=== PATIENT | female | born 1970 | race Caucasian/White ===

== ENCOUNTER 2019-01-07 17:52 | Observation (INO) | payer OTHER, SELFPAY ==
[2018-09-24 09:07] VITALS: BMI 39.1
[2019-01-07] VITALS (7 sets, daily range): BP systolic 135–153; BP diastolic 69–111; PULSE 72–88; RESP 11–20; TEMP 36.6–36.8; O2SAT 94–97; BMI 38.4; BMI 38.6
--- NOTE | 2019-01-07 18:31 | CT_ITS ---
HISTORY: Chest pain COMPARISON: Chest x-ray 03/19/2014 TECHNIQUE: Helical CT axial images of the thorax with 100 ml of Isovue 370 intravenous contrast. Multiplanar reconstruction. 3-D image processing was also performed. A radiation dose optimization technique was used for this scan. # of images incl. paperwork: [id number] FINDINGS: VASCULAR: No filling defects are seen within the pulmonary arteries. Normal contrast opacification of the pulmonary arteries. Thoracic aorta is normal in caliber without aneurysm. No aortic dissection. The pulmonary vasculature demonstrates no significant dilatation. LUNGS: Right middle lobe 3 mm calcified granuloma. Otherwise, clear lung parenchyma. No pulmonary masses or suspicious nodules. MEDIASTINUM: No abnormally enlarged mediastinal or hilar nodes. PLEURA: No pleural effusion. No pneumothorax. CARDIAC: Normal heart size. No pericardial effusion. CHEST WALL: Chest wall is intact. No abnormal axillary lymphadenopathy. BONES: No suspicious osseous lytic or blastic lesions seen. UPPER ABDOMEN: The visualized upper abdomen demonstrates no acute abnormality. CT/CTA Chest W/WO Contrast IMPRESSION: 1. No acute pulmonary embolus. 2. A 3 mm right middle lobe calcified granuloma. Otherwise, negative CT examination of chest. Individualized dose optimization techniques were used for this CT. at 1949 Reported and signed by: Claudio Fenton MD Electronically Signed: Claudio Fenton MD at 19:48 EDT Tel , Service support ,
--- NOTE | 2019-01-07 18:32 | EKG12_ITS ---
Test Reason : CP Blood Pressure : / mmHG Vent. Rate : 089 BPM Atrial Rate : 089 BPM P-R Int : 178 ms QRS Dur : 076 ms QT Int : 358 ms P-R-T Axes : 031 033 050 degrees QTc Int : 435 ms Normal sinus rhythm Normal ECG Confirmed by VARGAS QUINTANILLA, ANGEL ([id number]), medical transcription editor AUREA MIRANDA ([id number]) on 01/10/2019 1:16:16 PM Referred By: Confirmed By:ANGEL KAYE MD
[2019-01-07 18:53] LABS: Absolute Lymphocyte Count 1.44 X10^3/ul (0.83-4.51); Absolute Neutrophil Count 6.7 X10^3/uL (2.0-7.7); Basophil# 0.03 X10^3/uL; Basophil% 0.3 % (0-1); Eosinophil# 0.18 X10^3/uL; Hematocrit 39.8 % (37-47); Hemoglobin 12.9 g/dl (12.0-15.0); Lymphocyte # 1.44 X10^3/ul (4.0); Mean Corp Hgb Conc 32.4 g/gl (32-36); Mean Corpuscular Hgb 29.3 pg (27.0-32.0); Mean Corpuscular Volume 90.2 fL (81-99); Monocyte# 0.61 X10^3/uL; Monocyte% 6.8 % (0-10); Neutrophil % 74.6 % (47-70); POSITIVE COUNT NO; POSITIVE DIFFERENTIAL NO; POSITIVE MORPHOLOGY NO; Platelet Count 315 K/mm3 (150-450); RBC Distribution Width CV 13.9 % (11.6-14.6); RBC Distribution Width SD 45.7 fl (35.1-43.9); Red Blood Count 4.41 M/mm3 (4.2-5.4)
[2019-01-07] MEDS: Morphine 4 MG/ML Syringe IV ×2 (18:59→20:20)
[2019-01-07] MEDS: Aspirin 81 MG TAB.CHEW 324 MG PO (18:59)
[2019-01-07 19:04] LABS: Anion Gap 4 (5-15); BUN 22 mg/dL (7-18); BUN/Creat Ratio 25.1 RATIO (10-20); Calcium,Total 8.6 mg/dL (8.5-10.1); Chloride 104 mmol/L (98-107); Creatinine, Serum 0.88 mg/dL (0.55-1.02); EST Glomerular Filtration Rate 73 mL/min (>60); Est Glom Filt Rate - Afr Amer 88 mL/min (>60); Estimated Creatinine Clearance 66.78 ml/min; Glucose 118 mg/dL (74-106); Potassium 3.8 mmol/L (3.5-5.1); Sodium Level 135 mmol/L (136-145)
--- NOTE | 2019-01-07 20:11 | ED.RN ---
DR. MOSQUEDA MADE AWARE THAT PATIENT IS STILL C/O CHEST PAIN LEVEL 8/10. VERBAL ORDER FOR MORPHINE 4MG IV ORDERED.
--- NOTE | 2019-01-07 20:42 | HP.PCM_ITS ---
Problem List (1) Chest pain at rest Status: Acute History of Present Illness Date of Admission: 01/07/19 Chief Complaint: chest pain The patient is a 49 year old F with a significant history of DVT; hyperlipidemia; depression and anxiety; tobacco abuse; and ADHD who presented to the emergency department with 1 day history of excruciating episodic chest pain that started while watching fireworks on January 06, 2019. Her chest pain is substernal and it radiates to her back into her left arm. She felt numbness at the left arm. Her chest pain woke up from her sleep multiple times. She describes a chest pain as squeezing type of pain. She denies any ameliorating or aggravating factors. She has some cough that aggravates her throat more than her chest. Nonetheless her cough somewhat aggravates her chest pain. EKG showed sinus rhythm and troponin was unremarkable. CTPA was remarkable except for granuloma. Patient received morphine in the emergency department. The morphine actually did not help with her chest pain but it made her sleepy. Reportedly she had a stress test about 3 years ago and it was unremarkable. Past Medical History Past Medical History (Chronic Problems): Chronic Problems (Last Reviewed 01/07/19 @ 21:12 by Kristian Chase MD) History of hypothyroidism (Chronic) ADHD (attention deficit hyperactivity disorder) (Chronic) Medical History: Medical History (Last Reviewed 01/08/19 @ 06:37 by Kristian Chase MD) History of anxiety Z86.59 Thyroid disorder E07.9 Allergies cortisone [Cortisone] Allergy (Verified 08/01/18 12:22) Unknown spironolactone [From Aldactone] Allergy (Verified 08/01/18 12:22) Unknown Home Medications: Ambulatory Orders Medication Instructions Recorded Levothyroxine Sodium [Synthroid] 150 mcg PO DAILY 01/07/19 Paroxetine HCl 40 mg PO DAILY 01/07/19 Surgical History: Surgical History (Last Reviewed 01/08/19 @ 06:37 by Kristian Chase MD) History of tonsillectomy Z98.890, Z90.89 History of tonsillectomy Z90.89 S/P ACL surgery Z98.890 Surgical History: arthroscopy, knee APPRENTICE JOCKEY History: No pertinent APPRENTICE JOCKEY history Lives: With Family Smoking Status: Current every day smoker Tobacco Use: Cigarettes Alcohol: Occasional - *Family History Maternal History Items: Cancer Paternal History Items: Cancer Review of Systems Constitutional: Denies: Chills, Fever, Weight Change HEENT: Denies: Head Aches, Sinus Congestion, Sinus Drainage Cardiovascular: Reports: Chest Pain. Denies: Palpitations Respiratory: Reports: Cough, Shortness of Breath. Denies: Shortness of breath at rest, Sputum production Gastrointestinal: Denies: Abdominal Pain, Nausea, Vomiting Genitourinary: Denies: Dysuria Musculoskeletal: Denies: Joint Pain, Joint Tenderness Skin: Denies: Rash, Wounds Neurological: Denies: Numbness, Tingling, Focal weakness Psychiatric: Denies: Anxiety, Depression, Homicidal Ideations, Suicidal Ideations Hematologic/ Lymphatic: Denies: Easy Bruising, Easy Bleeding VTE Information - Inpt Only VTE Present on Admission: No VTE Mechan Device Prophylaxis: None VTE Pharm Prophylaxis ordered?: Yes Patient Problems: Active and Suspected Problems (Last Reviewed 01/07/19 @ 21:12 by Kristian Chase MD) Chest pain at rest (Acute) - Physical Exam General: Alert, Oriented x3, Cooperative HEENT: Atraumatic, PERRLA, EOMI, Normocephalic Neck: Supple, No JVD, Negative Carotid Bruits Lungs: Clear to auscultation, Normal air movement Cardiovascular: Regular rate, No murmurs Abdomen: Bowel Sounds Present, Soft, Non Tender Extremities: No edema, Capillary Refill Less than 3 Seconds Skin: No rashes, No breakdown Musculoskeletal: No Tenderness to Palpation of Joints or Extremities Neurological: Cranial nerves II-XII grossly intact Psych/Mental Status: Normal Affect, Appropriate Vital Signs Temp Pulse Resp BP Pulse Ox 98.3 F 80 11 L 153/83 H 95 01/07/19 17:54 01/07/19 20:03 01/07/19 20:03 01/07/19 20:03 01/07/19 20:03 Oxygen Delivery Method Room Air Weight: 101.605 kg Body Mass Index (BMI) 38.4 Finger Stick Blood Glucose 84 Laboratory Tests Past 24 Hrs 01/07/19 01/07/19 18:05 18:05 WBC 9.0 RBC 4.41 Hgb 12.9 Hct 39.8 MCV 90.2 MCH 29.3 MCHC 32.4 RDW 13.9 RDW Differential 45.7 H Plt Count 315 MPV 10.0 Immature Gran % (Auto) 0.300 Neut % (Auto) 74.6 H Lymph % (Auto) 16.0 L [place] % (Auto) 6.8 Eos % (Auto) 2.0 Baso % (Auto) 0.3 Absolute Neuts (auto) 6.7 Absolute Lymphs (auto) 1.44 Total Counted Not Reportable Sodium 135 L Potassium 3.8 Chloride 104 Carbon Dioxide 27.0 Anion Gap 4 L BUN 22 H Creatinine 0.88 Estim Creat Clear Calc 66.78 Est GFR (MDRD) Af Amer 88 Est GFR (MDRD) Non-Af 73 BUN/Creatinine Ratio 25.1 H Glucose 118 H Calcium 8.6 Troponin I < 0.015 Assessment/Plan All Active Problems (Last Reviewed 01/07/19 @ 21:12 by Kristian Chase MD) Chest pain at rest (Acute) The patient is a 49 year old F with a significant history of DVT; hyperlipidemia; depression and anxiety; tobacco abuse; and ADHD who presented to the emergency department with 1 day history of excruciating episodic chest pain that started while watching fireworks on January 06, 2019. Chest pain Admit to a monitored bed on PCU. CTPA showed no acute pulmonary embolus. It showed a 3 mm right middle lobe calcified granuloma. CTPA independently reviewed confirms no acute cardiopulmonary process. EKG independently reviewed confirms sinus rhythm Received aspirin 324 mg in emergency department ASA 81 mg p.o. daily SL NTG 0.4 mg prn as needed for chest pain Morphine as needed for pain We will check lipid panel. Statin: Start patient on high intensity statin Serial cardiac enzymes Stat EKG as needed for chest pain Treadmill stress test in the AM if the cardiac enzymes are negative Hypothyroidism Synthroid continued Depressions/anxiety Paxil continued Tobacco abuse Patient smokes 1 pack for about a week. Counseled. Declined nicotine patch. DVT prophylaxis Subcutaneous Lovenox ordered. Code Visit OBSV E&M: 76430 Initial observation care L3
--- NOTE | 2019-01-07 20:44 | ED.DCSUM_ITS ---
- ER Visit Summary Date of Service: 01/07/19 Chief Complaint: Back and chest pain History of Present Illness: The patient is a 49 F with chest pain that started yesterday evening. It is substernal and radiates straight through to the back. It feels like a squeezing pain. Associated with shortness of breath and bilateral arm pain. Patient has a history of DVT. She does not take blood thinners. History of smoking. Physical Examination: Afebrile and vital signs unremarkable. Patient alert and oriented. No acute distress. Heart regular rate and rhythm. Lungs clear. Skin appears normal. Extremities nontender with no edema. Pulses strong and equal. Test Results: EKG shows sinus rhythm rate of 89. No sign of acute ischemia or infarction pattern. CBC, BMP, troponin unremarkable. CTA chest showed no evidence of PE. She does have a 3 mm right middle lobe granuloma. Emergency Department Course and Treatment: Patient treated with aspirin and morphine. She was placed on a monitor. EKG was unremarkable. Chest pain work- up including a CTA chest was unremarkable. Patient had continued pain and required additional morphine. She is low risk overall, but with the continued pain I did contact the hospitalist to monitor overnight. Treatment Plan: As above Disposition: Observe at PCU Impression: 1. Chest pain This note was generated with [employer] dictation software. It may contain incorrect words, spelling, and punctuation that were not noted in review of the chart prior to signing ED Disposition - Plan for ED Patient: Referrals: Lalitha Olea MD [Primary Care Provider] -
--- NOTE | 2019-01-07 21:35 | EKG12_ITS ---
Test Reason : CP ADMIT Blood Pressure : / mmHG Vent. Rate : 065 BPM Atrial Rate : 065 BPM P-R Int : 194 ms QRS Dur : 082 ms QT Int : 410 ms P-R-T Axes : 030 021 031 degrees QTc Int : 426 ms Normal sinus rhythm Normal ECG Confirmed by VARGAS QUINTANILLA, ANGEL ([id number]), editor book MICHELLE LOGAN ([id number] on 01/13/2019 1:17:25 PM Referred By: DR HYATT Confirmed By:ANGEL KAYE MD
[2019-01-07] MEDS: Morphine 2 MG/ML Syringe IV (22:02)
[2019-01-07] MEDS: 0.9% NaCl Peripheral Flush Adult/Peds IV (22:02)
[2019-01-07] MEDS: Atorvastatin Calcium 80 MG Tablet PO (23:14)
[2019-01-08] MEDS: Morphine 2 MG/ML Syringe IV ×3 (01:36→10:47)
[2019-01-08] MEDS: 0.9% NaCl Peripheral Flush Adult/Peds IV ×3 (01:37→10:48)
[2019-01-08 03:00] VITALS: PULSE 74
[2019-01-08 03:25] VITALS: BP 124/76; PULSE 76; RESP 18; TEMP 36.6; O2SAT 96
[2019-01-08 04:27] LABS: Absolute Lymphocyte Count 1.02 X10^3/ul (0.83-4.51); Absolute Neutrophil Count 3.5 X10^3/uL (2.0-7.7); Basophil# 0.03 X10^3/uL; Basophil% 0.6 % (0-1); Eosinophil# 0.12 X10^3/uL; Eosinophils% 2.2 % (0-5); Hematocrit 40.2 % (37-47); Hemoglobin 12.9 g/dl (12.0-15.0); Lymphocyte # 1.02 X10^3/ul (4.0); Lymphocyte % 18.9 % (19-41); Mean Corp Hgb Conc 32.1 g/gl (32-36); Mean Corpuscular Hgb 28.7 pg (27.0-32.0); Mean Corpuscular Volume 89.5 fL (81-99); Monocyte# 0.67 X10^3/uL; Monocyte% 12.4 % (0-10); Neutrophil # 3.52 X10^3/uL (2.7-7.7); Neutrophil % 65.3 % (47-70); Platelet Count 321 K/mm3 (150-450); Red Blood Count 4.49 M/mm3 (4.2-5.4); White Blood Count 5.4 K/mm3 (4.4-11.0)
[2019-01-08 04:28] LABS: POSITIVE COUNT NO; POSITIVE DIFFERENTIAL NO; POSITIVE MORPHOLOGY NO
[2019-01-08 04:34] LABS: Prothrombin Time (Protime)PT. 12.9 SECONDS (11.7-14.9)
[2019-01-08 04:35] LABS: Partial Thromboplast Time 25.2 Seconds (24.1-36.2)
[2019-01-08 04:44] LABS: Anion Gap 5 (5-15); BUN 18 mg/dL (7-18); Calcium,Total 8.6 mg/dL (8.5-10.1); Chloride 105 mmol/L (98-107); Cholesterol 211 mg/dL (200); Creatinine, Serum 0.82 mg/dL (0.55-1.02); EST Glomerular Filtration Rate 79 mL/min (>60); Est Glom Filt Rate - Afr Amer 95 mL/min (>60); Estimated Creatinine Clearance 71.66 ml/min; Glucose 105 mg/dL (74-106); High Density Lipoprotein 53 mg/dL; Potassium 4.5 mmol/L (3.5-5.1); Sodium Level 139 mmol/L (136-145); Triglycerides 138 mg/dL; Very Low Density Lipoprotein 28 mg/dL (5-40)
[2019-01-08] MEDS: Levothyroxine 150 MCG Tablet PO (05:06)
[2019-01-08] MEDS: Aspirin E.C. 81 MG Tablet PO (05:06)
[2019-01-08 05:15] VITALS: BP 104/62; PULSE 77; RESP 18; TEMP 36.4; O2SAT 97
--- NOTE | 2019-01-08 05:55 | EKG12_ITS ---
Test Reason : AM EKG Blood Pressure : / mmHG Vent. Rate : 073 BPM Atrial Rate : 073 BPM P-R Int : 184 ms QRS Dur : 080 ms QT Int : 396 ms P-R-T Axes : 028 019 026 degrees QTc Int : 436 ms Normal sinus rhythm Normal ECG Confirmed by VARGAS QUINTANILLA, ANGEL ([id number]), loan expeditor MICHELLE LOGAN ([id number]) on 01/13/2019 1:14:54 PM Referred By: JUANITA Confirmed By:ANGEL KAYE MD
[2019-01-08 07:00] VITALS: PULSE 80
--- NOTE | 2019-01-08 07:17 | PN_ITS ---
Patient Problems: Active and Suspected Problems (Last Reviewed 01/08/19 @ 06:37 by Kristian Chase MD) Chest pain at rest (Acute) Subjective: The patient is a 49-year-old female with a past medical history of DVT, hyperlipidemia, depression/anxiety, tobacco dependence, ADHD and obesity who presented to the [facility] emergency department on 01/07/2019 complaining of severe substernal chest pain radiating into her back and down the left arm. It frequently awakens her from sleep. The EKG in the ED showed normal sinus rhythm, incomplete right bundle branch block and no suspicious ST or T wave changes. Subsequent EKGs were unchanged. Vital signs at presentation to the emergency department were temperature 98.3, pulse rate 88, blood pressure 147/74, respiratory rate 18 and she was 95 to 97% saturated on room air. CBC was unremarkable. BMP showed a sodium of 135 and a BUN of 22 with a creatinine of 0.88. Troponin was less than 0.015. CTA of the chest was negative for pulmonary embolus. There is a 3 mm right middle lobe calcified granuloma and the remainder of the CT was unremarkable. She was admitted to a monitored bed on the progressive care unit and serial cardiac enzymes were ordered. All cardiac enzymes were within normal limits and she is scheduled for a nuclear stress test today. Repeat lab today shows a normal CBC, unremarkable BMP. LDL is 130 and the HDL is 53. - Physical Exam Vital Signs Temp Pulse Resp BP Pulse Ox 97.6 F L 77 18 104/62 97 01/08/19 05:15 01/08/19 05:15 01/08/19 05:15 01/08/19 05:15 01/08/19 05:15 Oxygen Flow Rate (L/min) 2 Oxygen Delivery Method Room Air Weight: 225 lb 1.471 oz Body Mass Index (BMI) 38.6 Finger Stick Blood Glucose 84 Intake and Output for Last 24 Hours 01/06/19 01/07/19 01/08/19 23:59 23:59 23:59 Intake Total 300 / 300 Balance 300 / 300 Laboratory Tests Past 24 Hrs 01/07/19 01/07/19 01/07/19 18:05 18:05 22:05 WBC 9.0 RBC 4.41 Hgb 12.9 Hct 39.8 MCV 90.2 MCH 29.3 MCHC 32.4 RDW 13.9 RDW Differential 45.7 H Plt Count 315 MPV 10.0 Immature Gran % (Auto) 0.300 Neut % (Auto) 74.6 H Lymph % (Auto) 16.0 L [place] % (Auto) 6.8 Eos % (Auto) 2.0 Baso % (Auto) 0.3 Absolute Neuts (auto) 6.7 Absolute Lymphs (auto) 1.44 Total Counted Not Reportable PT INR APTT Sodium 135 L Potassium 3.8 Chloride 104 Carbon Dioxide 27.0 Anion Gap 4 L BUN 22 H Creatinine 0.88 Estim Creat Clear Calc 66.78 Est GFR (MDRD) Af Amer 88 Est GFR (MDRD) Non-Af 73 BUN/Creatinine Ratio 25.1 H Glucose 118 H Calcium 8.6 Troponin I < 0.015 < 0.015 Triglycerides Cholesterol LDL Cholesterol VLDL Cholesterol HDL Cholesterol 01/08/19 01/08/19 01/08/19 01:07 04:00 04:00 WBC RBC Hgb Hct MCV MCH MCHC RDW RDW Differential Plt Count MPV Immature Gran % (Auto) Neut % (Auto) Lymph % (Auto) [place] % (Auto) Eos % (Auto) Baso % (Auto) Absolute Neuts (auto) Absolute Lymphs (auto) Total Counted PT INR APTT Sodium 139 Potassium 4.5 Chloride 105 Carbon Dioxide 29.0 Anion Gap 5 BUN 18 Creatinine 0.82 Estim Creat Clear Calc 71.66 Est GFR (MDRD) Af Amer 95 Est GFR (MDRD) Non-Af 79 BUN/Creatinine Ratio 22.0 H Glucose 105 Calcium 8.6 Troponin I < 0.015 < 0.015 Triglycerides 138 Cholesterol 211 H LDL Cholesterol 130 VLDL Cholesterol 28 HDL Cholesterol 53 01/08/19 01/08/19 04:00 04:00 WBC 5.4 RBC 4.49 Hgb 12.9 Hct 40.2 MCV 89.5 MCH 28.7 MCHC 32.1 RDW 14.0 RDW Differential 45.0 H Plt Count 321 MPV 10.0 Immature Gran % (Auto) 0.600 Neut % (Auto) 65.3 Lymph % (Auto) 18.9 L [place] % (Auto) 12.4 H Eos % (Auto) 2.2 Baso % (Auto) 0.6 Absolute Neuts (auto) 3.5 Absolute Lymphs (auto) 1.02 Total Counted Not Reportable PT 12.9 INR 1.0 APTT 25.2 Sodium Potassium Chloride Carbon Dioxide Anion Gap BUN Creatinine Estim Creat Clear Calc Est GFR (MDRD) Af Amer Est GFR (MDRD) Non-Af BUN/Creatinine Ratio Glucose Calcium Troponin I Triglycerides Cholesterol LDL Cholesterol VLDL Cholesterol HDL Cholesterol Medical Necessity - Tobacco Use Smoking Status: Current every day smoker Tobacco Use: Cigarettes Assessment/Plan All Active Problems (Last Reviewed 01/08/19 @ 06:37 by Kristian Chase MD) Chest pain at rest (Acute)
[2019-01-08 07:33] VITALS: O2SAT 98
[2019-01-08] MEDS: Paroxetine 20 MG Tablet 40 MG PO (10:49)
[2019-01-08 11:07] VITALS: BP 129/66; PULSE 81; RESP 14; TEMP 36.9; O2SAT 95
--- NOTE | 2019-01-08 12:00 | STRESSREP ---
Stress Test Report Date: 01-08-19 Procedure: Exercise tolerance test/imaging study Indications: Chest pain Consent: Per the patient Procedure: The patient exercised on a Everardo protocol for 7 minutes completing Stage I and 1 minute of Stage II achieving a peak heart rate of 160 bpm (93 % predicted maximal heart rate) with a peak blood pressure 180/58 mmHg and a peak MET capacity of 8 METs. The baseline ECG demonstrated normal sinus rhythm. The peak exercise ECG demonstrated somatic/motion artifact with no obvious ECG changes. There were no cardiac dysrhythmias pretest, during exercise, or recovery. The functional capacity was considered average. There was no complaint of chest discomfort during exercise or recovery. The examination was discontinued secondary to leg discomfort. Impression: 1. Technically adequate (percent predicted maximal heart rate greater than 85%) exercise tolerance test 2. Peak exercise ECG with somatic/motion artifact with no obvious ECG changes 3. There were no cardiac dysrhythmias pretest, during exercise, or recovery 4. Nuclear images pending Myocardial perfusion imaging study: Technique: The patient was injected with 14.1 mCi of technetium 99m Cardiolite and subsequently rest SPECT Cardiolite nuclear imaging was obtained in the horizontal long, vertical long, and short axis views. The patient exercised on a Everardo protocol for 7 minutes completing Stage I and 1 minute of Stage II achieving a peak heart rate of 160 bpm (93 % predicted maximal heart rate) with a peak blood pressure 180/58 mmHg and a peak MET capacity of 8 METs. The patient was injected with 43.0 mCi of technetium 99m Cardiolite and subsequently stress SPECT Cardiolite nuclear imaging was obtained in the horizontal long, vertical long, and short axis views. A gated Cardiolite study at peak stress was obtained. Interpretation: Rest and stress SPECT Cardiolite nuclear imaging status post realignment, normalization, and attenuation correction, demonstrates appearance at rest of areas of subtle diminished tracer uptake near the distal anterior/anteroseptal segments which appears to improve/normalize following stress. Following stress there appears to be relative uniform tracer uptake and myocardial perfusion appearing within normal limits. There is end systolic thickening and brightening. The gated Cardiolite study demonstrates myocardial thickening and inward wall motion. The reported LVEF is 73 %. Impression: 1. Rest and stress SPECT Cardiolite nuclear imaging demonstrate myocardial perfusion changes at rest which appear to improve status post stress appearing compatible shifting soft tissue attenuation/artifact with no myocardial perfusion changes considered diagnostic for associated stress-induced myocardial ischemia. 2. The gated Cardiolite study reports an LVEF of 73 %. This note was generated with [employer] software. It may contain incorrect words, spelling, and punctuation that were not noted in checking the note before signing.
--- NOTE | 2019-01-08 12:54 | DCINST_ITS ---
- Discharge Diagnoses Current Active Problems: Current Active and Chronic Problems (Last Reviewed 01/08/19 @ 06:37 by Kristian Chase MD) Chest pain at rest (Acute) You will use the following diet at home:: Cardiac - low fat, Other - avoid caffeine, chocolate, peppermint and TUMS.......these things all increase reflux and heartburn. Do not lie down for at least 1 hour after eating. Your food should be the consistency of: Regular Your liquids should be the consistency of: Regular/Thin Discharge Activity: Return to Normal Activity Return to work on:: 01/10/19 May resume sexual activity in: No Restrictions Call your doctor if you observe: Fever of 101 or Higher, Shortness of breath, Dizziness, Fainting spells, Swelling in the ankles, Chest pain - persistent ch est pain with no improvement with changes in diet and Protonix, Prolonged hiccoughing Instructions: What Is GERD?, Lifestyle Changes for Controlling GERD, Medications for GERD, Your Body's Response to Anxiety, Treating Anxiety Disorders with Therapy Additional Instructions: There are many things that cause chest pain. We have ruled out 2 of the terrible things that can kill you and these are a blood clot to the lung and heart disease. There has been no problem with the rhythm of your heart while being monitored in the hospital. You have had heart burn and this can cause chest pain.....it can also cause esophageal spasms and this feels different than heartburn. I have given you a prescription for Protonix which is a medication that decreases the acid in the stomach and prevents heartburn. I have given you some literature to read on GERD and treament of GERD. Anxiety also causes chest tightness, shortness of breath, racing heart, etc. Asthma can do the same. Try the protonix and if the chest pains continue discuss this with your PCP and more testing will be needed to look for other causes of chest pain. Pending Tests on Discharge: none Allergies/Adverse Reactions: Allergies cortisone [Cortisone] Allergy (Verified 08/01/18 12:22) Unknown spironolactone [From Aldactone] Allergy (Verified 08/01/18 12:22) Unknown Medications to take at Discharge Levothyroxine Sodium [Synthroid] 150 mcg PO DAILY 01/07/19 Paroxetine HCl 40 mg PO DAILY 01/07/19 Pantoprazole Sodium [Protonix] 20 mg PO BID #60 tab 01/08/19 The following prescriptions were given: Pantoprazole Sodium [Protonix] 20 mg PO BID #60 tab Prescription Printed Primary Care Physician: Lalitha Olea MD [Primary Care Provider] - Please follow up with your Primary Care Physician in: 1 week Test Results: Test results from this visit will be discussed in further detail at your follow- up appointment, if applicable. Proposed Discharge Date: 01/08/19
--- NOTE | 2019-01-08 13:25 | PCM.DC.SUM ---
Discharge Date and Diagnosis - Problem List Patient Problems: Active and Suspected Problems (Last Reviewed 01/08/19 @ 06:37 by Kristian Chase MD) Non-cardiac chest pain (Acute) Chest pain at rest (Acute) Date of Admission: 01/07/19 Date of Discharge: 01/08/19 - Primary Discharge Diagnosis Active and Suspected Problems (Last Reviewed 01/08/19 @ 06:37 by Kristian Chase MD) Non-cardiac chest pain (Acute) Chest pain at rest (Acute) musculoskeletal chest and back pain. - Secondary Discharge Diagnosis Chronic Problems (Last Reviewed 01/08/19 @ 06:37 by Kristian Chase MD) GERD (gastroesophageal reflux disease) (Chronic) Obesity (BMI 30-39.9) (Chronic) History of hypothyroidism (Chronic) ADHD (attention deficit hyperactivity disorder) (Chronic) Mixed anxiety/depression Tobacco dependence Hospital Course and Treatment Imaging Results: 01/08/19 05:55 Nuclear Stress Test - Treadmil [NM] AM (NON MEDS) Clinical Impression(s) from Imaging Studies Chest CTA 01/07/19 18:31 IMPRESSION: 1. No acute pulmonary embolus. 2. A 3 mm right middle lobe calcified granuloma. Otherwise, negative CT examination of chest. Individualized dose optimization techniques were used for this CT. at 1949 Reported and signed by: Claudio Fenton MD Electronically Signed: Claudio Fenton MD at 19:48 EDT Tel , Service support , Laboratory Tests 01/08/19 01/08/19 01/08/19 Range/Units 04:00 04:00 04:00 WBC 5.4 (4.4-11.0) K/mm3 RBC 4.49 (4.2-5.4) M/mm3 Hgb 12.9 (12.0-15.0) g/dl Hct 40.2 (37-47) % MCV 89.5 (81-99) fL MCH 28.7 (27.0-32.0) pg MCHC 32.1 (32-36) g/gl RDW 14.0 (11.6-14.6) % RDW Differential 45.0 H (35.1-43.9) fl Plt Count 321 (150-450) K/mm3 MPV 10.0 (6.2-12.0) fl Immature Gran % (Auto) 0.600 (0.0-0.9) % Neut % (Auto) 65.3 (47-70) % Lymph % (Auto) 18.9 L (19-41) % Early % (Auto) 12.4 H (0-10) % Eos % (Auto) 2.2 (0-5) % Baso % (Auto) 0.6 (0-1) % Absolute Neuts (auto) 3.5 (2.0-7.7) X10^3/uL Absolute Lymphs (auto) 1.02 (0.83-4.51) X10^3/ul Total Counted Not Reportable PT 12.9 (11.7-14.9) SECONDS INR 1.0 APTT 25.2 (24.1-36.2) Seconds Sodium (136-145) mmol/L Potassium (3.5-5.1) mmol/L Chloride (98-107) mmol/L Carbon Dioxide (21.0-32.0) mmol/L Anion Gap (5-15) BUN (7-18) mg/dL Creatinine (0.55-1.02) mg/dL Estim Creat Clear Calc ml/min Est GFR (MDRD) Af Amer (>60) mL/min Est GFR (MDRD) Non-Af (>60) mL/min BUN/Creatinine Ratio (10-20) RATIO Glucose (74-106) mg/dL Calcium (8.5-10.1) mg/dL Troponin I < 0.015 (<0.045) ng/mL Triglycerides ( - 199) mg/dL Cholesterol (200) mg/dL LDL Cholesterol (0-130) mg/dL VLDL Cholesterol (5-40) mg/dL HDL Cholesterol (40 - ) mg/dL 01/08/19 01/08/19 01/07/19 Range/Units 04:00 01:07 22:05 WBC (4.4-11.0) K/mm3 RBC (4.2-5.4) M/mm3 Hgb (12.0-15.0) g/dl Hct (37-47) % MCV (81-99) fL MCH (27.0-32.0) pg MCHC (32-36) g/gl RDW (11.6-14.6) % RDW Differential (35.1-43.9) fl Plt Count (150-450) K/mm3 MPV (6.2-12.0) fl Immature Gran % (Auto) (0.0-0.9) % Neut % (Auto) (47-70) % Lymph % (Auto) (19-41) % Early % (Auto) (0-10) % Eos % (Auto) (0-5) % Baso % (Auto) (0-1) % Absolute Neuts (auto) (2.0-7.7) X10^3/uL Absolute Lymphs (auto) (0.83-4.51) X10^3/ul Total Counted PT (11.7-14.9) SECONDS INR APTT (24.1-36.2) Seconds Sodium 139 (136-145) mmol/L Potassium 4.5 (3.5-5.1) mmol/L Chloride 105 (98-107) mmol/L Carbon Dioxide 29.0 (21.0-32.0) mmol/L Anion Gap 5 (5-15) BUN 18 (7-18) mg/dL Creatinine 0.82 (0.55-1.02) mg/dL Estim Creat Clear Calc 71.66 ml/min Est GFR (MDRD) Af Amer 95 (>60) mL/min Est GFR (MDRD) Non-Af 79 (>60) mL/min BUN/Creatinine Ratio 22.0 H (10-20) RATIO Glucose 105 (74-106) mg/dL Calcium 8.6 (8.5-10.1) mg/dL Troponin I < 0.015 < 0.015 (<0.045) ng/mL Triglycerides 138 ( - 199) mg/dL Cholesterol 211 H (200) mg/dL LDL Cholesterol 130 (0-130) mg/dL VLDL Cholesterol 28 (5-40) mg/dL HDL Cholesterol 53 (40 - ) mg/dL 01/07/19 01/07/19 Range/Units 18:05 18:05 WBC 9.0 (4.4-11.0) K/mm3 RBC 4.41 (4.2-5.4) M/mm3 Hgb 12.9 (12.0-15.0) g/dl Hct 39.8 (37-47) % MCV 90.2 (81-99) fL MCH 29.3 (27.0-32.0) pg MCHC 32.4 (32-36) g/gl RDW 13.9 (11.6-14.6) % RDW Differential 45.7 H (35.1-43.9) fl Plt Count 315 (150-450) K/mm3 MPV 10.0 (6.2-12.0) fl Immature Gran % (Auto) 0.300 (0.0-0.9) % Neut % (Auto) 74.6 H (47-70) % Lymph % (Auto) 16.0 L (19-41) % Early % (Auto) 6.8 (0-10) % Eos % (Auto) 2.0 (0-5) % Baso % (Auto) 0.3 (0-1) % Absolute Neuts (auto) 6.7 (2.0-7.7) X10^3/uL Absolute Lymphs (auto) 1.44 (0.83-4.51) X10^3/ul Total Counted Not Reportable PT (11.7-14.9) SECONDS INR APTT (24.1-36.2) Seconds Sodium 135 L (136-145) mmol/L Potassium 3.8 (3.5-5.1) mmol/L Chloride 104 (98-107) mmol/L Carbon Dioxide 27.0 (21.0-32.0) mmol/L Anion Gap 4 L (5-15) BUN 22 H (7-18) mg/dL Creatinine 0.88 (0.55-1.02) mg/dL Estim Creat Clear Calc 66.78 ml/min Est GFR (MDRD) Af Amer 88 (>60) mL/min Est GFR (MDRD) Non-Af 73 (>60) mL/min BUN/Creatinine Ratio 25.1 H (10-20) RATIO Glucose 118 H (74-106) mg/dL Calcium 8.6 (8.5-10.1) mg/dL Troponin I < 0.015 (<0.045) ng/mL Triglycerides ( - 199) mg/dL Cholesterol (200) mg/dL LDL Cholesterol (0-130) mg/dL VLDL Cholesterol (5-40) mg/dL HDL Cholesterol (40 - ) mg/dL none Operations: None Procedures: Stress test - Impression: 1. Rest and stress SPECT Cardiolite nuclear imaging demonstrate myocardial perfusion changes at rest which appear to improve status post stress appearing compatible shifting soft tissue attenuation/artifact with no myocardial perfusion changes considered diagnostic for associated stress-induced myocardial ischemia. 2. The gated Cardiolite study reports an LVEF of 73 %. Summary of Care Provided: The patient is a 49-year-old female with a past medical history of DVT, hyperlipidemia, depression/anxiety, tobacco dependence, ADHD and obesity who presented to the [facility] emergency department on 01/07/2019 complaining of severe substernal chest pain radiating into her back and down the left arm with paresthesias in the hand. It had been constant for several hours. She told the night hospitalist that the pain wakens her up from sleep. The EKG in the ED showed normal sinus rhythm, incomplete right bundle branch block and no suspicious ST or T wave changes. Subsequent EKGs were unchanged. Vital signs at presentation to the emergency department were temperature 98.3, pulse rate 88, blood pressure 147/74, respiratory rate 18 and she was 95 to 97% saturated on room air. CBC was unremarkable. BMP showed a sodium of 135 and a BUN of 22 with a creatinine of 0.88. Troponin was less than 0.015. CTA of the chest was negative for pulmonary embolus. There is a 3 mm right middle lobe calcified granuloma and the remainder of the CT was unremarkable. She was admitted to a monitored bed on the progressive care unit and serial cardiac enzymes were ordered. All cardiac enzymes were within normal limits. she had a treadmill nuclear stress test on 01/08/19 and it was negative for ischemia. The gated nuclear ejection fraction was 73%. Telemetry showed normal sinus rhythm with no significant ectopy. Lipid panel showed a total cholesterol of 211 with an LDL of 130 and an HDL of 53. On PE she had pain with palpation of the left paravertebral muscles on the left side in the upper and mid thoracic areas. There was BL trapezius tightness, worse on the left. Negative Spurlings maneuver. she had decreased cervical rotation to the right. She was given 30 mg of Toradol prior to DC and 10 mg of Flexeril. She was advised to consider a massage and or visiting a chiropractor. She was given a prescription for Protonix 20 mg BID prior to discharge and if she has persistent chest pain despite treating the muscle spasms she will try the Protonix. She will follow up with Dr. Pagan in the next 1-2 weeks. I advised her to quit smoking, lose weight and start an exercise program. She was seen by the water treatment plant repairer in the hospital and she is interested in the [employer] program run by the water treatment plant repairer's. I told her she would need a referral from Dr. Olea. PHYSICAL EXAM: GENERAL: alert, oriented X 3, Cooperative, NAD ORAL: moist mucosa, no mucosal lesions NECK: No JVD, supple, trachea midline LUNGS: CTA, symmetric chest expansion HEART: RRR, Normal S1 and S2, no rub, no gallop ABDOMEN: soft, NT, ND, BS present, no guarding with palpation EXTREMITIES: no edema, no cyanosis, no calf tenderness SKIN: No rashes, no breakdown NEUROLOGIC: no focal neurologic deficits PSYCH: appropriate, normal affect, pleasant See above for the musculoskeletal exam. This note was generated with [employer] dictation software. It may contain incorrect words, spelling, and punctuation that were not noted in checking the note before signing. Patient Problems: Active and Suspected Problems (Last Reviewed 01/08/19 @ 06:37 by Kristian Chase MD) Non-cardiac chest pain (Acute) Chest pain at rest (Acute) - Physical Exam Vital Signs Temp Pulse Resp BP Pulse Ox 98.4 F 81 14 129/66 H 95 01/08/19 11:07 01/08/19 11:07 01/08/19 11:07 01/08/19 11:07 01/08/19 11:07 Oxygen Flow Rate (L/min) 3 Oxygen Delivery Method Room Air Weight: 225 lb 1.471 oz Body Mass Index (BMI) 38.6 Finger Stick Blood Glucose 84 Intake and Output for Last 24 Hours 01/06/19 01/07/19 01/08/19 23:59 23:59 23:59 Intake Total 300 / 300 Balance 300 / 300 Laboratory Tests Past 24 Hrs 01/07/19 01/07/19 01/07/19 18:05 18:05 22:05 WBC 9.0 RBC 4.41 Hgb 12.9 Hct 39.8 MCV 90.2 MCH 29.3 MCHC 32.4 RDW 13.9 RDW Differential 45.7 H Plt Count 315 MPV 10.0 Immature Gran % (Auto) 0.300 Neut % (Auto) 74.6 H Lymph % (Auto) 16.0 L Early % (Auto) 6.8 Eos % (Auto) 2.0 Baso % (Auto) 0.3 Absolute Neuts (auto) 6.7 Absolute Lymphs (auto) 1.44 Total Counted Not Reportable PT INR APTT Sodium 135 L Potassium 3.8 Chloride 104 Carbon Dioxide 27.0 Anion Gap 4 L BUN 22 H Creatinine 0.88 Estim Creat Clear Calc 66.78 Est GFR (MDRD) Af Amer 88 Est GFR (MDRD) Non-Af 73 BUN/Creatinine Ratio 25.1 H Glucose 118 H Calcium 8.6 Troponin I < 0.015 < 0.015 Triglycerides Cholesterol LDL Cholesterol VLDL Cholesterol HDL Cholesterol 01/08/19 01/08/19 01/08/19 01:07 04:00 04:00 WBC RBC Hgb Hct MCV MCH MCHC RDW RDW Differential Plt Count MPV Immature Gran % (Auto) Neut % (Auto) Lymph % (Auto) Early % (Auto) Eos % (Auto) Baso % (Auto) Absolute Neuts (auto) Absolute Lymphs (auto) Total Counted PT INR APTT Sodium 139 Potassium 4.5 Chloride 105 Carbon Dioxide 29.0 Anion Gap 5 BUN 18 Creatinine 0.82 Estim Creat Clear Calc 71.66 Est GFR (MDRD) Af Amer 95 Est GFR (MDRD) Non-Af 79 BUN/Creatinine Ratio 22.0 H Glucose 105 Calcium 8.6 Troponin I < 0.015 < 0.015 Triglycerides 138 Cholesterol 211 H LDL Cholesterol 130 VLDL Cholesterol 28 HDL Cholesterol 53 01/08/19 01/08/19 04:00 04:00 WBC 5.4 RBC 4.49 Hgb 12.9 Hct 40.2 MCV 89.5 MCH 28.7 MCHC 32.1 RDW 14.0 RDW Differential 45.0 H Plt Count 321 MPV 10.0 Immature Gran % (Auto) 0.600 Neut % (Auto) 65.3 Lymph % (Auto) 18.9 L Early % (Auto) 12.4 H Eos % (Auto) 2.2 Baso % (Auto) 0.6 Absolute Neuts (auto) 3.5 Absolute Lymphs (auto) 1.02 Total Counted Not Reportable PT 12.9 INR 1.0 APTT 25.2 Sodium Potassium Chloride Carbon Dioxide Anion Gap BUN Creatinine Estim Creat Clear Calc Est GFR (MDRD) Af Amer Est GFR (MDRD) Non-Af BUN/Creatinine Ratio Glucose Calcium Troponin I Triglycerides Cholesterol LDL Cholesterol VLDL Cholesterol HDL Cholesterol Discharge Activity: Return to Normal Activity Return to work on:: 01/10/19 May resume sexual activity in: No Restrictions Call your doctor if you observe: Fever of 101 or Higher, Shortness of breath, Dizziness, Fainting spells, Swelling in the ankles, Chest pain - persistent chest pain with no improvement with changes in diet and Protonix, Prolonged hiccoughing Home Medications: Medications to take at Discharge Levothyroxine Sodium [Synthroid] 150 mcg PO DAILY 01/07/19 Paroxetine HCl 40 mg PO DAILY 01/07/19 Pantoprazole Sodium [Protonix] 20 mg PO BID #60 tab 01/08/19 Following Prescrptions Were Given to Patient: Pantoprazole Sodium [Protonix] 20 mg PO BID #60 tab Prescription Printed Primary Care Physician: Lalitha Olea MD [Primary Care Provider] - Please follow up with your Primary Care Physician in: 1 week Patient Instructions: Your Body's Response to Anxiety, What Is GERD?, Lifestyle Changes for Controlling GERD, Medications for GERD, Treating Anxiety Disorders with Therapy Disposition: Home Minutes spent on discharge:: 30 Medical Necessity - Tobacco Use Smoking Status: Current every day smoker Tobacco Use: Cigarettes Meaningful Use Info Meaningful Use Diagnoses (Choose all that apply): None applicable Code Visit OBSV E&M: 02376 Observation care discharge
[2019-01-08] MEDS: cycloBENZAPRine HCl 10 MG Tablet PO (14:21)
[2019-01-08] MEDS: Ketorolac 30 MG/ML Syringe IV (14:21)
== END 2019-01-08 14:41 | disposition home or self-care (01) ==
LOC: ED 18:46 → PCU 21:15
PROVIDERS: Admitting Provider Hospitalist; Emergency Provider Emergency Medicine; Family Provider Internal Medicine; PCP Internal Medicine; Visit Provider Internal Medicine
DX: R07.89 Other chest pain (principal); E78.5 Hyperlipidemia, unspecified; R20.0 Anesthesia of skin; F32.9 Major depressive disorder, single episode, unspecified; E03.9 Hypothyroidism, unspecified; F41.9 Anxiety disorder, unspecified; Z86.718 Personal history of other venous thrombosis and embolism; Z79.899 Other long term (current) drug therapy; F17.210 Nicotine dependence, cigarettes, uncomplicated; R06.02 Shortness of breath; M79.602 Pain in left arm; M79.601 Pain in right arm; K21.9 Gastro-esophageal reflux disease without esophagitis; E66.9 Obesity, unspecified; Z68.38 Body mass index [BMI] 38.0-38.9, adult; Z71.3 Dietary counseling and surveillance
CPT/HCPCS: 36415; 71275; 78452; 80048; 80061; 84484; 85025; 85610; 85730; 93005; 93017; 96374; 96375; 96376; 99218; 99285; 99406; A9500; Q9967; A4216; G0378

== ENCOUNTER 2024-03-06 08:11 | Emergency (ER) | payer OTHER, SELFPAY ==
[2024-03-06 08:12] VITALS: BP 180/109; PULSE 84; RESP 16; TEMP 36.1; O2SAT 98; BMI 36.6
--- NOTE | 2024-03-06 08:24 | EDS_ITS ---
HPI History of Present Illness Chief Complaint: Dizziness Informant: patient and spouse/S.O. Onset/Context/Timing Onset: Weeks (2) Context: Gradual Onset Timing: Continuous Quality: Weakness Location: Generalized Worsened by: Nothing Relieved by: Nothing Narrative Narrative: Patient presents with I do not feel good. Patient states this has been getting worse over the last 2 weeks. Patient states that she has seen her primary care physician who changed the timing of her thyroid medication because her TSH was noted to be very high. Patient also states her blood pressure has been going up. states that her blood pressure was 202/118 this morning. Patient admits to a left-sided headache. Patient states she feels weak all over. Patient admits to some burning pain in the left side of her neck. Patient denies any fevers or chills. Patient denies any chest pain or shortness of breath. Patient admits to some nausea but denies any vomiting. Patient admits to some tingling in her hands and around her mouth. [facility] Medical History Acute bronchitis, unspecified Contact with and (suspected) exposure to other viral communicable diseases History of anxiety Thyroid disorder Home Medications ?Medication ?Instructions ?Recorded ?Last Taken ?Type levothyroxine 150 mcg tablet 150 mcg PO DAILY THYROID 01/07/19 01/06/19 History paroxetine HCl 40 mg tablet 40 mg PO DAILY DEPRESSION 01/07/19 01/06/19 History pantoprazole 20 mg tablet,delayed 20 mg PO BID #60 tabs 01/08/19 Unknown Rx release buspirone 5 mg tablet 5 mg PO BID 01/15/21 Unknown History azithromycin 250 mg tablet 250 mg PO QDAY #6 tabs 03/06/22 Unknown Rx Allergy/AdvReac Type Severity Reaction Status Date / Time cortisone (Cortisone) Allergy Unknown Verified 03/06/24 08:12 spironolactone (From Allergy Unknown Verified 03/06/24 08:12 Aldactone) Surgical History History of tonsillectomy S/P ACL surgery Social History Smoking Status: Current every day smoker tobacco type: cigarettes alcohol intake: current alcohol intake frequency: a few times a week Alcohol type: beer substance use type: does not use caffeine: Yes what type of physical activity do you participate in: walking seatbelt use: always do you feel safe at home: Yes 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 [employer] ED Constitutional Constitutional ED: Denies chills or fever(s) Eyes Eyes: Denies blurry vision or change in vision ENT ENT ED: Denies rhinorrhea or sore throat Cardiovascular Cardiovascular: Denies chest pain or palpitations Respiratory/Chest Respiratory/Chest: Denies cough or dyspnea Gastrointestinal Gastrointestinal: Reports nausea; Denies vomiting Genitourinary Genitourinary ED: Denies dysuria or hematuria Musculoskeletal Musculoskeletal: Denies back pain or neck pain Integumentary Denies abscess or rash Neurologic Neurologic: Reports paresthesias RUE (Hands) and LUE (Hands) and weakness; Denies headache(s) Allergic/Immunologic Allergic/Immunologic ED: Denies mouth swelling or urticaria EXAM Physical Exam Const Vital Signs: 03/06/24 08:12 03/06/24 10:12 03/06/24 12:00 Temperature 97.0 F L Temperature Source Temporal Pulse Rate 84 64 78 Respiratory Rate 16 18 16 Blood Pressure 180/109 H 156/78 H 164/97 H Blood Pressure Mean 132 104 119 Pulse Ox 98 98 98 Oxygen Delivery Method Room Air Room Air Room Air Positive well nourished and well developed General Appearance ED: well developed and NAD HEENT Reports moist mucous membranes Neck supple and no JVD Resp normal respiratory effort and clear to auscultation bilaterally Cardio regular rate and regular rhythm GI non-tender and non-distended Palpation: soft Extremity normal to inspection General Extremety ED: Negative for edema or tenderness General Extremity: Negative for edema Neuro oriented x3, CN's II-XII intact bilaterally and no sensory deficits noted Sensorium / Orientation: alert Motor Exam: general weakness Psych Mood & Affect: depressed MDM MDM MDM Narrative Medical decision making narrative: Differential diagnosis includes cardiac dysrhythmia, cardiac ischemia, electrolyte abnormality, hypertensive urgency, accelerated hypertension, hypothyroidism, viral illness, intracranial bleeding, temporal arteritis, and anxiety. EKG will be obtained to assess for cardiac dysrhythmia and cardiac ischemia. Chest x-ray will be obtained to assess for congestive heart failure, pneumonia, and widened mediastinum. CT scan of the brain will be obtained to assess for intracranial bleeding and headache. CBC will be obtained to assess for leukocytosis and anemia. Comprehensive metabolic profile will be obtained to assess for hepatic function, renal function, and electrolyte abnormality. High-sensitivity troponin will be obtained to assess for cardiac ischemia. TSH will be obtained to assess for hypothyroidism. Sed rate will be obtained to assess for temporal arteritis. COVID-19, influenza, and RSV PCR will be obtained to assess for viral illness. Lab Data Attestation: I reviewed the patient's lab results. Lab results narrative: CBC was reviewed and was within normal limits. Sed rate was reviewed and was normal at 11. Comprehensive metabolic profile was reviewed and was within normal limits. High-sensitivity troponin was reviewed and was less than 3. TSH was reviewed and was 2.28. Urinalysis was reviewed. There is no evidence of urinary tract infection or hematuria. COVID-19 PCR was reviewed and was negative. Influenza PCR was reviewed and was negative for influenza A and influenza B. RSV PCR was reviewed and was negative. Labs: Laboratory Results - last 24 hr 03/06/24 03/06/24 08:56 09:30 WBC 10.6 RBC 4.92 Hgb 14.0 Hct 43.6 MCV 88.6 MCH 28.5 MCHC 32.1 RDW Std Deviation 45.4 H RDW Coeff of Yosef 14.1 Plt Count 387 MPV 9.8 Immature Gran % (Auto) 0.600 Neut % (Auto) 62.2 Lymph % (Auto) 28.4 [place] % (Auto) 6.0 Eos % (Auto) 1.9 Baso % (Auto) 0.9 Absolute Neuts (auto) 6.6 Absolute Lymphs (auto) 3.01 Nucleated RBC % 0 ESR 11 Sodium 137 Potassium 4.2 Chloride 104 Carbon Dioxide 28.0 Anion Gap 5 BUN 16 Creatinine 0.84 Estim Creat Clear Calc 86.38 Est GFR (MDRD) Af Amer 91 Est GFR (MDRD) Non-Af 76 BUN/Creatinine Ratio 19.1 Glucose 105 Calcium 9.5 Total Bilirubin 0.50 AST 12 L ALT 23 Alkaline Phosphatase 98 Troponin I High Sens < 3 L Total Protein 8.0 Albumin 3.9 Globulin 4.1 Albumin/Globulin Ratio 1.0 TSH 2.280 Urine Color Yellow Urine Clarity Clear Urine pH 6.5 Ur Specific [place] 1.010 Urine Protein Negative Urine Glucose (UA) Normal Urine Ketones Negative Urine Occult Blood Negative Urine Nitrite Negative Urine Bilirubin Negative Urine Urobilinogen Normal Ur Leukocyte Esterase Negative Urine RBC 0 SEEN Urine WBC 0 SEEN Ur Squamous Epith Cells 0-5 SEEN Urine Bacteria 0 SEEN Urine Mucus 0 SEEN Radiography Chest X-Ray - ED: 2 View, Read by ED Physician, Read by Radiologist and No Acute Disease Diagnostic Testing: Clinical Impression(s) from Imaging Studies Chest X-Ray 03/06/24 08:41 IMPRESSION: No radiographic evidence of acute cardiopulmonary disease. Electronically Signed: Chidi Parkinson MD at 9:48 EDT , Brain CT 03/06/24 10:36 IMPRESSION: No acute intracranial process. Electronically Signed: Chidi Parkinson MD at 11:17 EDT , CT scan of the brain was obtained. There is no acute intracranial abnormality. This was interpreted by the radiologist and was also independently reviewed by myself. PA and lateral chest x-ray was obtained. There are 2 views. On my independent interpretation, lung ruff are clear. There is normal cardiac silhouette. Bony thorax is normal. There is no acute process noted. Radiologist also interpreted the x-ray and agrees. EKG Initial EKG: Attestation: I personally reviewed and interpreted this EKG as follows: Interpretation: Sinus Rhythm (70) and No Acute Injury Pattern Comments: EKG was obtained. On my independent interpretation, it showed a normal sinus rhythm with a rate of 70. GA interval, QRS interval, and QTc intervals were all normal. [place] was normal. There are no acute ST or T wave changes. Prior EKG tracings: available for review Prior: Unchanged (12/09/2018) Treatment and Re-Evaluation :: Patient was given Reglan and Benadryl here. Patient was given a dose of labetalol. Patient was feeling somewhat better on reevaluation. Patient's blood pressure improved to 164/97. Patient was advised of her findings. Patient was advised that this could be a migraine headache, viral illness, or hypertensive related. Patient was instructed to rest in a dark quiet room. Patient was instructed to continue her medications as previously prescribed. Patient was instructed to follow-up with her primary care physician in 5 to 7 days. Patient understood and was agreeable with the plan. All questions were answered. Discharge Plan Triage Chief Complaint: Dizziness ED Provider: Rudi Desai Dx/Rx/DC Orders Clinical Impression: Headache, Hypertension Instructions: ED Hypertension, Established, ED Rebound Headache Prescriptions: No Action buspirone 5 mg tablet 5 mg PO BID azithromycin 250 mg tablet 250 mg PO QDAY Qty: 6 0RF Rx Instructions: 2 tablets today, then 1 tablet daily on days 2 through 5 levothyroxine 150 MCG tablet 150 mcg PO DAILY Patient Comments: PT MUST USE BRAND SYNTHROID Rx Instructions: PT MUST USE BRAND SYNTHROID paroxetine HCl 40 MG tablet 40 mg PO DAILY Patient Comments: take 1 tablet by mouth once daily pantoprazole 20 MG tablet 20 mg PO BID Qty: 60 0RF Primary Care Provider: Lalitha Olea Referrals: Lalitha Olea MD [Primary Care Provider] - 3-5 Days Print Language: Arabic Disposition Disposition: Home, Self Care
--- NOTE | 2024-03-06 08:41 | EKG12_ITS ---
Test Reason : DIZZY Blood Pressure : / mmHG Vent. Rate : 070 BPM Atrial Rate : 070 BPM P-R Int : 198 ms QRS Dur : 078 ms QT Int : 390 ms P-R-T Axes : 049 012 049 degrees QTc Int : 421 ms Normal sinus rhythm Normal ECG Confirmed by DAYA ONTIVEROS MD ([id number]), book or script editor JORDEN AGUIRRE ([id number]) on 03/08/2024 8:04:26 AM Referred By: Confirmed By:DAYA ONTIVEROS MD
--- NOTE | 2024-03-06 08:41 | RAD_ITS ---
INDICATION: Weakness EXAMINATION/TECHNIQUE: X-RAY - XR Chest 2 Views COMPARISON: Prior study dated: 03/19/2014 FINDINGS: LINES/DEVICES: None. LUNGS: No consolidation, edema or effusion. No pneumothorax. MEDIASTINUM AND CARDIOVASCULAR STRUCTURES: Cardiac silhouette not enlarged. Central airways and mediastinal contour are unremarkable. BONES AND SOFT TISSUES: Unremarkable. RAD/Chest PA and Lateral IMPRESSION: No radiographic evidence of acute cardiopulmonary disease. Electronically Signed: Chidi Parkinson MD at 9:48 EDT ,
[2024-03-06 09:19] LABS: Erythrocyte Sedimentation Rate 11 mm/hr (0-30)
[2024-03-06] MEDS: Labetalol (Prefilled) 20 MG/4 ML 10 MG IV (09:19)
[2024-03-06 09:20] LABS: Absolute Lymphocyte Count 3.01 X10^3/uL (0.83-4.51); Absolute Neutrophil Count 6.6 X10^3/uL (2.0-7.7); Basophil% 0.9 % (0-1); Eosinophils% 1.9 % (0-5); Hematocrit 43.6 % (37-47); Lymphocyte # 3.01 X10^3/ul (0.83-4.51); Lymphocyte % 28.4 % (19-41); Mean Corp Hgb Conc 32.1 g/dL (32-36); Mean Corpuscular Hgb 28.5 pg (27.0-32.0); Mean Corpuscular Volume 88.6 fL (81-99); Mean Platelet Vol. 9.8 fl (6.2-12.0); Monocyte# 0.64 X10^3/uL; NRBC Flagged by Analyzer 0 % (0-5); Neutrophil # 6.59 X10^3/uL (2.7-7.7); Neutrophil % 62.2 % (47-70); Platelet Count 387 K/mm3 (150-450); RBC Distribution Width CV 14.1 % (11.6-14.6); RBC Distribution Width SD 45.4 fl (35.1-43.9); Red Blood Count 4.92 M/mm3 (4.2-5.4); White Blood Count 10.6 K/mm3 (4.4-11.0)
[2024-03-06 09:33] LABS: Bacteria 0 SEEN /hpf (None Seen); Mucous, Urine 0 SEEN /hpf (<or=2+); Red Blood Cells-Urine 0 SEEN /hpf (0-5); White Blood Cells 0 SEEN /hpf (0-5)
[2024-03-06 09:35] LABS: Color, Urine Yellow (Yellow); Glucose, Dipstick Normal (Normal); Ketone-Dipstick Negative (Negative); Leukocyte Esterase-Dipstick Negative /ul (Negative); Nitrite-Dipstick Negative (Negative); Occult Blood-Urine Negative /ul (Negative); Protein-Dipstick Negative (Negative); Urine Bilirubin Dipstick Negative (Negative); Urine Clarity Clear (Clear); Urine Urobilinogen Normal (Normal); Urine pH 6.5 (5.0 - 8.0)
[2024-03-06 09:40] LABS: AST(SGOT) 12 U/L (15-37); Alanine Aminotransfer ALT/SGPT 23 U/L (13-56); Albumin, Serum 3.9 g/dL (3.2-5.0); Alkaline Phosphatase 98 U/L (45-117); Anion Gap 5 (5-15); BUN 16 mg/dL (7-18); BUN/Creat Ratio 19.1 RATIO (10-20); Calcium,Total 9.5 mg/dL (8.5-10.1); Chloride 104 mmol/L (98-107); Creatinine, Serum 0.84 mg/dL (0.55-1.02); EST Glomerular Filtration Rate 76 mL/min (>60); Est Glom Filt Rate - Afr Amer 91 mL/min (>60); Estimated Creatinine Clearance 86.38 ml/min; Globulin 4.1 g/dL (2.2-4.2); Glucose 105 mg/dL (74-106); Potassium 4.2 mmol/L (3.5-5.1); Sodium Level 137 mmol/L (136-145); Troponin-I HS < 3 pg/mL (3.0-54.0)
[2024-03-06 09:43] LABS: Squamous Epithelial Cells - UA 0-5 SEEN /hpf (5-10)
[2024-03-06 10:12] VITALS: BP 156/78; PULSE 64; RESP 18; O2SAT 98
--- NOTE | 2024-03-06 10:36 | CT_ITS ---
INDICATION: headache, dizzy EXAMINATION: CT BRAIN - CT Head or Brain W/O Contrast Injection TECHNIQUE: Multiple axial images were obtained of the head without intravenous contrast. The protocol utilizes one or more of the following dose reduction techniques: automated exposure control, adjustment of mA and/or kV according to patient size,and/or use of iterative reconstruction technique. IV Contrast dosage and agent: None. RADIATION DOSAGE (If Supplied By Facility): CTDIvol = ( 44.99 ) mGy, DLP = ( 779.24 ) mGycm COMPARISON: MRI of the brain of 03/20/2014 FINDINGS: BRAIN PARENCHYMA: No intra- or extra-axial hemorrhage. No evidence of acute infarct. No intracranial mass or mass effect. There is preservation of the valiente/white matter interface. Posterior fossa structures are unremarkable. CSF SPACES: Appropriate for age. No hydrocephalus. Basal cisterns are patent. CALVARIUM, SKULL BASE, PARANASAL SINUSES AND MASTOID AIR CELLS: Clear. No discrete lytic or blastic abnormalities. ORBITS: Both globes, extraocular muscles, optic nerves and retrobulbar fat appear unremarkable. CT/Brain/Head without Contrast IMPRESSION: No acute intracranial process. Electronically Signed: Chidi Parkinson MD at 11:17 EDT ,
[2024-03-06 12:00] VITALS: BP 164/97; PULSE 78; RESP 16; O2SAT 98
[2024-03-06] MEDS: DiphenhydrAMINE 50 MG/ML Syringe 25 MG IV (12:18)
[2024-03-06] MEDS: Metoclopramide 10 MG/2 ML Vial IV (12:18)
[2024-03-06 13:55] VITALS: BP 155/89; PULSE 72; RESP 16; TEMP 36.2; O2SAT 98
== END 2024-03-06 13:56 | disposition home or self-care (01) ==
PROVIDERS: Emergency Provider Emergency Medicine; PCP Internal Medicine; Visit Provider Emergency Medicine
DX: R51.9 Headache, unspecified (principal); I10 Essential (primary) hypertension; F17.210 Nicotine dependence, cigarettes, uncomplicated
CPT/HCPCS: 70450; 71046; 80053; 81001; 84443; 84484; 85025; 85652; 87631; 93005; 96374; 96375; 99284; A4216

== ENCOUNTER 2024-04-06 15:58 | Outpatient (RCR) | payer OTHER, SELFPAY ==
--- NOTE | 2024-04-06 16:51 | HP.PTEVAL ---
Patient's Visit Information Visit Information Visit Information: FORD VENTURA is a 54 year old F referred to Physical Therapy by SHARATH OTOOLE with a diagnosis of vestibular weakness. Date of Evaluation: 04/06/24 Physical Therapist: Rudi Hackett, MIKET, OCS, CSCS Visit Plan Frequency: 1x/Week Duration: 4-6 Weeks Plan: IE: VOR H and V 60 seconds each sitting in quiet room 6x/day treat weekly x 2-6 as needed for adaptation progression of HEP and balance as needed. Subjective Subjective: Got a virus in inner ear. Symptoms started on 03/02 with spinning, vertigo adn dizzyness. Took meclizine and was still bothersome, felt terrible dizzy and nauseous That day and the next and tired. Thursday after school dizzy and constant. ER Thursday gave her norvasc to bring blood pressure down. It has been high ever since. Dizzyness persists. it is constant. Fatigued without moving head . Move head L or up or moving eyes gives her tingling in mouth and feels nauseous and spins lasting a minute or two. sleep is not great, no spinning but awake. Shifting in bed can give her spinning. Steroids for 7 day after ENT and they did not help. Overall 60% better. 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 Worse after work. Hobbies: grandkids. Not able to do them. basic ADLS: all getting done. Objective Objective: Walks into PT slowly and feels fatigued but I. Cervical aROM is WFL and without pain, hesitant to move head quickly though. UE AROM WFL and strength 4/5 - B hallpike clarissa today, - roll test. Oculaomotor: no nystagmus with gaze or head shake today to my naked eye. - ocular tilt - skew eye deviation slight + L head thrust Pursuit and saccades normal VOR H 6/10 dizzy for 10 seconds with 30 sec VOR V 30 seconds 6/10 for 5 seconds. Balance in romberg is sway L today with ec but able. Balance/Special Test Scores Functional Gait Assessment Score: 28 % Disability: 6.6700 Dizziness Score: 46 Goals Goal 1:: Dizzyness abolished and patient feeling 100% back to normal Goal Time Frame: 4-6 Weeks Goal 2:: DHI <10 Goal Time Frame: 4-6 Weeks Goal 3:: FGA Goal Time Frame: 4-6 Weeks Rehabilitation Potential Physical Therapy Diagnosis: dizzyness and imbalance with vestibular hypofunction Rehabilitation Potential: Good Anticipated Interventions Patient/Client Instruction: Educate patient on: Condition and Plan of Care For the Purpose of:: To improve muscle performance and motor function, To increase tolerance to activity/condition/position and To improve gait and locomotor functions Therapeutic Exercise to Include: Balance training Comment: adaptation/vestibular ex For the Purpose of:: To improve nutrient delivery to tissue, To improve muscle performance and motor function, To increase tolerance to activity/condition/position and To improve gait and locomotor functions Text: Thank you for the opportunity to evaluate your patient. For Medicare and Medicare HMO plans, please review the plan of care and approve it. It will need to be FAXED BACK to us at [phone] for Medicare purposes. For Medicare only, by signing this I certify the plan of care. Please let me know if there are questions or concerns regarding this plan of care. Physician Signature: Date:
--- NOTE | 2024-04-14 11:17 | HP.PT.NRP ---
Patient Information Patient Information: FORD VENTURA was seen in my office for initial evaluation on 04/06/24. The following Plan of Care was established for this patient: POC Established Initial Frequency: 1x/Week Initial Duration: 4-6 Weeks Anticipated Interventions Patient/Client Instruction: Educate patient on: Condition and Plan of Care For the Purpose of:: To improve muscle performance and motor function, To increase tolerance to activity/condition/position and To improve gait and locomotor functions Therapeutic Exercise to Include: Balance training For the Purpose of:: To improve nutrient delivery to tissue, To improve muscle performance and motor function, To increase tolerance to activity/condition/position and To improve gait and locomotor functions Last Seen Last Seen: This patient was last seen in our office 04/06/24. Pertinent comments regarding their Physical therapy will appear below: Pt seen one visit of POC and given HEP. POC established but patient called before any further visits to cancel all. She is doing great, wants d/c. At this point I will be discontinuing this patient from physical therapy. I would be happy to see this patient again in the future if found appropriate by the physician. Thank you! Rudi Hackett, DPT, OCS, CSCS Balance/Gait/Functional tests Balance/Special Test Scores Functional Gait Assessment Score: 28 % Disability: 6.6700 Dizziness Score: 46
== END 2024-04-06 19:00 | disposition home or self-care (01) ==
LOC: PT 15:58
PROVIDERS: PCP Internal Medicine
DX: H81.8X1 Other disorders of vestibular function, right ear (principal)
CPT/HCPCS: 97110; 97161